=== PATIENT | female | born 1970 | race Caucasian/White ===

== ENCOUNTER 2017-02-20 03:44 | Emergency (ER) | payer BC ==
--- NOTE | 2017-02-20 03:59 | DR.GENAD ---
HPI - PCP Primary Care Physician: terrell - HPI Comment HPI Comment: HISTORY BELOW. - Complaint/Symptoms Chief Complaint Doctors Comments: WOKE UP 01:00 AM TODAY WITH SEVERE EPIGASTRIC PAIN RADIATING TO LOWER ABDOMEN. PAIN ASSOCIATED WITH NAUSEA, VOMITING AND WEAKNESS. NO FEVER. NO MELENA OR HEMATEMESIS. PATIENT HAD SIMILAR EPISODE NIGHT BEFORE LAST BUT SUBSIDED SPONTANOUSLY. Chief Complaint:: upper abdominal pain through to back and nausea since 1am. patient been vomiting Self Treatment fo Chief Complaint: pepto - Nurses notes reviewed Nurses Notes Review: Yes - Source History Provided: Patient - Mode of Arrival Mode of Arrival: Ambulatory - Timing Onset of Chief Complaint: 02/20/17 Came on: Suddenly - Duration Duration: Constant Duration: Hours - Severity Severity: Moderate PMH - PMH Past Medical History: Yes Past Medical History: Hypertension, SVT Past Medical History Comment: thyroid Past Surgical History: Yes Past Surgical History Comment: ablasion surgery - Family History History of Family Medical Conditions: Yes Family Medical History: [place], Hypertension - Social History Does patient currently use any type of tobacco product: No Have you used tobacco products in the last 12 months: No Type of Tobacco Use: None Does any household member use tobacco: No Alcohol Use: None Do you use any recreational Drugs:: No Lives With: Spouse Lives Where: Home - infectious screening In the last 2 months have you had wt loss of >10#?: NO Have you had fever, night sweats or hemotysis?: No Have you traveled outside the country in the last 6 months?: No Isolation: Standard ROS - Review of Systems Constitutional: Weakness, Fatigue. negative: Chills, Fever Eyes: No Symptoms Reported. negative: Eye Pain, Discharge ENTM: No Symptoms Reported. negative: Ear Pain, Nose Discharge, Nose Congestion , Throat Pain Respiratoy: No Symptoms Reported. negative: Productive Cough, Non-Productive Cough, Short of Breath, Wheezing, Hemoptysis Cardiovascular: No Symptoms Reported. negative: Chest Pain Gastrointestinal/Abdominal: negative: Abdominal Pain, Nausea, Vomiting Genitourinary: No Symptoms Reported. negative: Dysuria, Frequency, Hematuria Neurological: Weakness. negative: Headache, Dizziness Musculoskeletal: Muscle Pain Integumentary: No Symptoms Reported Hematologic/Lymphatic: No Symptoms Reported Endocrine: No Symptoms Reported All Other Systems: Reviewed and Negative PE - Vital Signs Vitals: Pulse Rate 76 Respiratory Rate 20 Blood Pressure 145/69 O2 Sat by Pulse Oximetry 99 - General Limitations: No Limitations General Appearance: Alert - Head Head Exam: Normal Inspection - Eyes Eye exam: Normal Appearance - ENT ENT Exam: Normal External Ear Exam External Ear Exam: Normal External Inspection TM/Canal Exam: Bilateral Normal Nose Exam: Normal Nose Exam Mouth Exam: Normal Inspection Throat Exam: Normal Inspection - Neck Neck Exam: Trachea Midline. negative: Tenderness, Meningismus, Lymphadenopathy - Chest Chest Inspection: Symmetric Chest Wall Rise - Respiratory Respiratory Exam: Normal Lung Sounds Bilat Respiratory Exam: Bilateral Clear to Auscultation - Cardiovascular Cardiovascular Exam: Regular Rate, Normal Rhythm, Normal Heart Sounds - Abdominal Exam Abdominal Exam: Normal Bowel Sounds, Soft, Tenderness Abdominal Tenderness: RUQ, LUQ, Diffuse, Moderate - Extremities Extremities Exam: Normal Inspection - Back Back Exam: Normal Inspection - Neurologic Neurological Exam: Alert, Oriented X3 - Psychiatric Psychiatric Exam: Anxious - Skin Skin Exam: Normal Color MDM - Additional Information Additional Information Obtained From: Family - Differential Diagnosis Differential Diagnosis: ABDOMINAL PAIN, PUD, PANCREATITIS, BOWEL OBSTRUCTION, KIDNEY STONE. Course - Treatment Treatment: SEE ORDERS. IV ZOFRAN AND DEMOROL, IV TORADOL AND IV PHENERGAN IN ED. - Consultation Consultation Comments: DISCUSS PATIENT WITH DR. LANDAVERDE. HE WILL ADMIT PATIENT. DR PURVIS TO BE CONSULTED. - Education/Counseling Education/Counseling: Patient, Family, Education Educated On: Treatment, Diagnosis ROR - Labs Reviewed Laboratory Results Reviewed?: Yes Result Diagrams: 02/20/17 04:15 02/20/17 04:15 Laboratory: WBC 11.8 X10^3/uL (3.6-10.0) H 02/20/17 04:15 RBC 4.82 X10^6/uL (3.5-5.4) 02/20/17 04:15 Hgb 13.8 g/dL (12.0-16.0) 02/20/17 04:15 Hct 42.1 % (36.0-47.0) 02/20/17 04:15 MCV 87.5 fL (80.0-100.0) 02/20/17 04:15 MCH 28.6 pg (27.0-34.0) 02/20/17 04:15 MCHC 32.7 g/dL (33.0-35.0) L 02/20/17 04:15 RDW 13.1 % (11.6-16.5) 02/20/17 04:15 Plt Count 203 X10^3/uL (150.0-450.0) 02/20/17 04:15 MPV 10.5 fL (7.4-11.0) 02/20/17 04:15 Neut % 78.6 % (42.0-75.0) H 02/20/17 04:15 Lymph % 14.3 % (21.0-51.0) L 02/20/17 04:15 [place] % 5.4 % (0.0-13.0) 02/20/17 04:15 Eos % 1.1 % (0.9-2.9) 02/20/17 04:15 Baso % 0.6 % (0.2-1.0) 02/20/17 04:15 Neut # 9.3 x10^3/uL (2.2-4.8) H 02/20/17 04:15 Lymph # 1.7 X10^3/uL (1.3-2.9) 02/20/17 04:15 [place] # 0.6 x10^3/uL (0.3-0.8) 02/20/17 04:15 Eos # 0.1 x10^3/uL (0.0-0.2) 02/20/17 04:15 Baso # 0.1 X10^3/uL (0.0-0.1) 02/20/17 04:15 Absolute Nucleated RBC 0.1 /100WBC 02/20/17 04:15 Sodium 143 mmol/L (136-145) 02/20/17 04:15 Corrected Sodium 144 mmol/L (136-145) 02/20/17 04:15 Potassium 3.3 mmol/L (3.5-5.1) L 02/20/17 04:15 Chloride 105 mmol/L (98-107) 02/20/17 04:15 Carbon Dioxide 28.8 mmol/L (21-32) 02/20/17 04:15 BUN 12 mg/dL (7-18) 02/20/17 04:15 Creatinine 1.01 mg/dL (0.55-1.02) 02/20/17 04:15 Est GFR (MDRD) Af Amer > 60 (>60) 02/20/17 04:15 Est GFR (MDRD) Non-Af > 60 (>60) 02/20/17 04:15 Glucose 123 mg/dL (65-99) H 02/20/17 04:15 Calcium 8.6 mg/dL (8.5-10.1) 02/20/17 04:15 Corrected Calcium 9.2 mg/dL (8.5-10.1) 02/20/17 04:15 Total Bilirubin 0.70 mg/dL (0.2-1.0) 02/20/17 04:15 AST 11 Units/L (15-37) L 02/20/17 04:15 ALT 18 Units/L (12-78) 02/20/17 04:15 Alkaline Phosphatase 76 Units/L (46-116) 02/20/17 04:15 Total Protein 6.7 g/dL (6.4-8.2) 02/20/17 04:15 Albumin 3.2 g/dL (3.4-5.0) L 02/20/17 04:15 Globulin 3.5 g/dL (2.5-4.5) 02/20/17 04:15 Albumin/Globulin Ratio 0.9 Ratio (1.1-2.1) L 02/20/17 04:15 Amylase 36 Units/L (25-115) 02/20/17 04:15 Lipase 113 Units/L (73-393) 02/20/17 04:15 Specimen Type Clean catch urine 02/20/17 06:14 Urine Color Yellow (YELLOW) 02/20/17 06:14 Urine Appearance Clear (CLEAR) 02/20/17 06:14 Urine pH 7.0 (5.0 - 8.0) 02/20/17 06:14 Ur Specific [place] 1.010 (1.000-1.030) 02/20/17 06:14 Urine Protein Negative (NEGATIVE) 02/20/17 06:14 Urine Glucose (UA) Negative (NEGATIVE) 02/20/17 06:14 Urine Ketones 1+ (NEGATIVE) 02/20/17 06:14 Urine Occult Blood Negative (NEGATIVE) 02/20/17 06:14 Urine Nitrite Negative (NEGATIVE) 02/20/17 06:14 Urine Bilirubin Negative (NEGATIVE) 02/20/17 06:14 Urine Urobilinogen Normal (NORMAL) 02/20/17 06:14 Ur Leukocyte Esterase Negative (NEGATIVE) 02/20/17 06:14 Urine RBC None seen /HPF (NEGATIVE) 02/20/17 06:14 Urine WBC None seen /HPF (NEGATIVE) 02/20/17 06:14 Ur Squamous Epith Cells Rare /HPF (NEGATIVE) 02/20/17 06:14 Urine Bacteria Trace /HPF (NEGATIVE) 02/20/17 06:14 Ur Culture Indicated? No/not indicated 02/20/17 06:14 H. pylori IgG Antibody Negative (NEGATIVE) 02/20/17 04:15 - XRAY XRAY Interpreted by: Radiologist XRAY Findings: REPORT DISCUSS WITH PATIENT. - Diagnosis Discharge Problem: Abdominal pain Qualifiers: Abdominal location: upper abdomen, unspecified Qualified Code(s): R10.10 - Upper abdominal pain, unspecified Cholelithiasis Qualifiers: Cholelithiasis location: gallbladder Cholecystitis presence: without cholecystitis Biliary obstruction: without biliary obstruction Qualified Code(s) : K80.20 - Calculus of gallbladder without cholecystitis without obstruction N&V (nausea and vomiting) Qualifiers: Vomiting type: bilious vomiting Qualified Code(s): R11.14 - Bilious vomiting - Discharge Plan Condition: Stable - Follow ups/Referrals Follow ups/Referrals: All Landaverde [Primary Care Provider] - 3 days - Instructions
[2017-02-20] MEDS ORDERED: ZOFRAN INJ 4 MG VIAL IVP ONE (04:08)
[2017-02-20] MEDS ORDERED: PEPCID 20 MG IV PREMIX* 20 MG/50 ML BAG IV ONE (04:08)
[2017-02-20] MEDS ORDERED: NS 1000 ML 1,000 ML IV ONE (04:08)
[2017-02-20] MEDS ORDERED: DEMEROL INJ IM ONE (04:11)
[2017-02-20] MEDS ORDERED: DEMEROL INJ ONE (04:15)
[2017-02-20 04:33] LABS: BASOPHILS # (AUTO) 0.1 X10^3/uL (0.0-0.1); BASOPHILS % (AUTO) 0.6 % (0.2-1.0); EOSINOPHILS # (AUTO) 0.1 x10^3/uL (0.0-0.2); EOSINOPHILS % (AUTO) 1.1 % (0.9-2.9); HEMATOCRIT 42.1 % (36.0-47.0); HEMOGLOBIN 13.8 g/dL (12.0-16.0); LYMPHOCYTES # (AUTO) 1.7 X10^3/uL (1.3-2.9); LYMPHOCYTES % (AUTO) 14.3 % (21.0-51.0); MEAN CORPUSCULAR HEMOGLOBIN 28.6 pg (27.0-34.0); MEAN CORPUSCULAR HGB CONC 32.7 g/dL (33.0-35.0); MEAN CORPUSCULAR VOLUME 87.5 fL (80.0-100.0); MEAN PLATELET VOLUME 10.5 fL (7.4-11.0); MONOCYTES # (AUTO) 0.6 x10^3/uL (0.3-0.8); MONOCYTES % (AUTO) 5.4 % (0.0-13.0); NEUTROPHILS # (AUTO) 9.3 x10^3/uL (2.2-4.8); NEUTROPHILS % (AUTO) 78.6 % (42.0-75.0); PLATELET COUNT 203 X10^3/uL (150.0-450.0); RED BLOOD COUNT 4.82 X10^6/uL (3.5-5.4); RED CELL DISTRIBUTION WIDTH 13.1 % (11.6-16.5); WHITE BLOOD COUNT 11.8 X10^3/uL (3.6-10.0)
[2017-02-20 04:35] LABS: ALANINE AMINOTRANSFERASE 18 Units/L (12-78); ALBUMIN 3.2 g/dL (3.4-5.0); ALKALINE PHOSPHATASE 76 Units/L (46-116); AMYLASE 36 Units/L (25-115); ASPARTATE AMINO TRANSFERASE 11 Units/L (15-37); BLOOD UREA NITROGEN 12 mg/dL (7-18); CALCIUM 8.6 mg/dL (8.5-10.1); CARBON DIOXIDE 28.8 mmol/L (21-32); CHLORIDE 105 mmol/L (98-107); COR CA(FOR HYPOALB) 9.2 mg/dL (8.5-10.1); COR NA(FOR HYPERGLY) 144 mmol/L (136-145); CREATININE 1.01 mg/dL (0.55-1.02); GLUCOSE 123 mg/dL (65-99); LIPASE 113 Units/L (73-393); SODIUM 143 mmol/L (136-145); TOTAL PROTEIN 6.7 g/dL (6.4-8.2); eGFR BLACK RACES > 60 (>60); eGFR NON BLACK RACES > 60 (>60)
[2017-02-20] MEDS ORDERED: NS + KCL 20 MEQ/L 1,000 ML IV ONE ×2 (05:47→05:54)
--- NOTE | 2017-02-20 05:54 | CT ---
HISTORY: Abdominal pain. Upper abdominal pain and nausea. Study: CT abdomen and pelvis without IV or oral contrast Comparison: No priors Technique: Multiple axial images of the abdomen and pelvis were obtained from the lung bases to the pubic symph ysis without the administration of IV or oral contrast. Coronal and sagittal images are also review ed. Dose reduction techniques utilized automatic exposure control. Findings: The visualized portions of the lung bases are unremarkable. The liver, spleen, pancreas, kidneys, a nd adrenal glands are unremarkable in their CT appearance. The gallbladder is unremarkable in its CT appearance. No significant mesenteric lymphadenopathy or stranding can be observed. No free fluid or free air is seen within the abdomen. No bowel wall thickening or bowel dilatation is present. T he appendix is retrocecal and normal in appearance. The colon is unremarkable. Specifically, there is no diverticulosis noted within the sigmoid colon. The uterus appears slightly prominent and lies to the right of the midline. There is a 3.25 centimeter simple cyst of the left ovary. No solid mass or cul-de-sac fluid is seen. The urinary bladder is grossly unremarkable. The bony structures are grossly intact. IMPRESSION: 3.25 centimeter simple cyst of the left ovary. Remainder the examination of the abdomen and pelvis i s unremarkable. Reported By:
[2017-02-20] MEDS ORDERED: NS + KCL 20 MEQ/L 1,000 ML IV SCH (06:00)
[2017-02-20] MEDS ORDERED: TORADOL 30 MG VIAL IVP ONE (06:00)
[2017-02-20] MEDS ORDERED: TORADOL 30 MG VIAL ONE (06:02)
[2017-02-20] MEDS ORDERED: PHENERGAN INJ 25 MG IV ONE (06:09)
[2017-02-20] MEDS ORDERED: PHENERGAN INJ 25 MG ONE (06:10)
[2017-02-20 06:21] LABS: BILIRUBIN,URINE NEGATIVE (NEGATIVE); BLOOD/HEMOGLOBIN,URINE NEGATIVE (NEGATIVE); GLUCOSE, URINE NEGATIVE (NEGATIVE); KETONES,URINE 1+ (NEGATIVE); LEUKOCYTE ESTERASE ,URINE NEGATIVE (NEGATIVE); NITRITES,URINE NEGATIVE (NEGATIVE); PROTEIN,URINE NEGATIVE (NEGATIVE); UROBILINOGEN,URINE NORMAL (NORMAL)
[2017-02-20 06:23] LABS: APPEARANCE,URINE CLEAR (CLEAR); COLOR,URINE YELLOW (YELLOW)
[2017-02-20 06:25] LABS: RBC,URINE NONE SEEN /HPF (NEGATIVE); SQUAMOUS EPITHELIAL CELL,UR RARE /HPF (NEGATIVE)
[2017-02-20 06:26] LABS: BACTERIA,URINE TRACE /HPF (NEGATIVE)
--- NOTE | 2017-02-20 07:03 | US ---
HISTORY: Nausea, abdominal pain Study: Right upper quadrant ultrasound Comparison: None Technique: Multiple grayscale sonographic images were obtained. Findings: The liver is normal in size and configuration without evidence for cysts, mass, or biliary ductal di latation. There is a large gallstone within the gallbladder. Gallbladder wall thickness was normal. The common duct measured 4 millimeters. The pancreas was not well visualized. The right kidney measu red 10.8 x 6.5 x 4.9 centimeters and demonstrated no solid masses, hydronephrosis, stones, or perine phric fluid collections. IMPRESSION: Cholelithiasis without evidence for cholecystitis Reported By:
[2017-02-20] MEDS ORDERED: ZOFRAN INJ 4 MG VIAL IVP PRN (07:52)
[2017-02-20] MEDS: DEMEROL INJ IVP PRN ×3 (11:14→20:24)
[2017-02-20 11:30] VITALS: BMI 21.7
[2017-02-20] MEDS ORDERED: D5 LR 1000 ML 1,000 ML IV ONE (14:11)
[2017-02-20] MEDS ORDERED: XYLOCAINE 2 % (PLAIN) ONE (14:14)
[2017-02-20] MEDS ORDERED: DIPRIVAN VIAL 20 ML ONE (14:14)
[2017-02-20] MEDS ORDERED: DIPRIVAN VIAL 0 ML ONE (14:19)
--- NOTE | 2017-02-20 14:20 | DR.H&P ---
H&P - History & Physical for Day of: H&P Date: 02/20/17 - Chief Complaint Chief Complaint: ABDOMINAL PAIN - Allergies Allergies/Adverse Reactions: Allergies Allergy/AdvReac Type Severity Reaction Status Date / Time No Known Drug Allergy Allergy Verified 02/20/17 04:12 - History of Present Illness History of Present Illness: THIS IS A 47 YEAR OLD FEMALE, WHO IS A PATIENT OF OURS. SHE PRESENTS TO THE EMERGENCY ROOM WITH COMPLAINTS OF SEVERE ABDOMINAL PAIN. PATIENT REPORTS ABDOMINAL PAIN STARTED SUDDENLY AT 1:00 AM THIS MORNING. PATIENT REPORTS PAIN IS IN THE EPIGASTRIC REGION AND RADIATES TO LOWER ABDOMEN. SHE REPORTS ASSCOIATED NAUSEA, VOMITING, FATIGUE AND WEAKNESS. SHE DENIES FEVER, MELENA, AND HEMATEMESIS. PATIENT REPORTS SIMILAR EPISODE ONE NIGHT PRIOR, BUT SYMPTOMS SPONTANEOUSLY SUBSIDED. LABS, CT OBTAINED IN ER. CBC WNL EXCEPT: WBC 11.8. CMP WNL EXCEPT: POTASSIUM 3.3, GLUCOSE 123, ALBUMIN 3.2. URINALYSIS WNL. H-PYLORI NEGATIVE. EKG: SINUS RHYTHM, RATE 70. CT OF ABD/PELVIS REPORTS 3.25CM SIMPLE CYST OF THE LEFT OVARY; REMAINDER OF THE ABD/ PELVIS IS UNREMARKABLE. GALLBLADDER US REPORTS CHOLELITHIASIS WITHOUT EVIDENCE FOR CHOLECYSTITIS. PATIENT RECEIVED IV ZOFRAN, DEMEROL, TORADOL, AND PHENERGAN IN ER. WE WILL ADMIT PATIENT FOR FURTHER TREATMENT AND EVALUATION. WE WILL START IV PAIN MEDICATION, IV ANTI-EMETICS, AND CONSULT DR. PURVIS. - Past Medical History Past Medical History: Hypertension, Hypothyroidism, SVT - Past Surgical History Additional Surgical History: Cardiac Ablation 2008 - Family History Family Medical History: [place], Hypertension - Social History Does patient currently use any type of tobacco product: No Have you used tobacco products in the last 12 months: No Type of Tobacco Use: None Does any household member use tobacco: No Alcohol Use: None - Medications Home Medications: Norethin Acet & Estrad-Fe [Junel Fe 11/04 1-20 mg-Mcg] 1 tab PO DAILY 02/20/17 [ History Confirmed 02/20/17] Ramipril [Ramipril] 20 mg PO DAILY 02/20/17 [History Confirmed 02/20/17] Thyroid [[place] Thyroid] 0.5 tab PO DAILY 02/20/17 [History Confirmed 02/20/17] - Review of Systems Constitutional: Weakness, Malaise. denies: Fever Eyes: No Symptoms Reported. denies: Pain, Vision Change, Conjunctivae Inflammation, Eyelid Inflammation, Redness ENT: No Symptoms Reported. denies: Ear Pain, Ear Discharge, Nose Pain, Nose Discharge, Nose Congestion, Mouth Pain, Mouth Swelling, Throat Pain, Throat Swelling Respiratory: No Symptoms Reported. denies: Cough, Shortness of Breath, Hemoptysis, SOB with Excertion, Pleuritic Pain, Sputum, Wheezing Cardiovascular: No Symptoms Reported. denies: Chest Pain, Palpitations, Orthopnea, Paroxysmal Noc. Dyspnea, Edema, Light Headedness Gastrointestinal: Nausea, Vomiting, Abdominal Pain. denies: Diarrhea, Constipation, Melena, Hematochezia Genitourinary: No Symptoms Reported. denies: Dysuria, Frequency, Incontinence, Hematuria, Retention Musculoskeletal: No Symptoms Reported. denies: Shoulder Pain, Arm Pain, Back Pain, Hand Pain, Leg Pain, Foot Pain, Neck Pain Skin: No Symptoms Reported. denies: Rash, Lesions, Jaundice, Bruising, Wound, Ecchymosis Neurological: No Symptoms Reported. denies: Weakness, Numbness, Incoordination , Change in Speech, Confusion, Seizures - Physical Exam Vital Signs: Temperature 98.5 F Pulse Rate [Left Brachial] 76 Respiratory Rate 18 Blood Pressure [Left Arm] 119/73 O2 Sat by Pulse Oximetry 95 Oriented: Normal, Time, Person, Place Eyes: Normal. negative: Blurred Vision, Diplopia, Discharge, Pain, Redness, Photophobia Ear: Normal. negative: Swelling, Ecchymosis, Hemotypanum, Abrasion, Laceration Nose: Normal. negative: Injected, Discharge, Blood Throat: Dry. negative: Tonsillar Hypertrophy, Exudate Respiratory: Clear Throughout Cardiovascular: Normal. negative: Murmur, Edema : Normal. negative: Dysuria, Hematuria, Frequency, Discharge, Bleeding, Auscultation: Bowel Sounds: Decreased. negative: Bruit Palpation: Normal. negative: Spleen Enlarged, Liver Enlarged, Mass Pulsatile Tenderness: Diffuse, Severe. negative: Rebound, Guarding, Rigidity Skin: Decreased [place]. negative: Diaphoresis, Wound, Bruising, Ecchymosis Musculoskeletal: Normal Psychiatric: Normal Mood Description: Calm, Appropriate Affect: Normal Speech Pattern: Clear, Appropriate - Assessment/Plan (1) Abdominal pain Qualifiers: Abdominal location: epigastric Qualified Code(s): R10.13 - Epigastric pain Status: Acute Plan: ADMIT PATIENT, START IV FLUIDS, IV PAIN MEDICATION, IV ANTI-EMETICS, CONSULT DR. PURVIS, MONITOR. (2) Cholelithiasis Qualifiers: Cholelithiasis location: gallbladder Cholecystitis presence: without cholecystitis Cholangitis presence: C Cholecystitis acuity: C Cholangitis acuity: C Biliary obstruction: without biliary obstruction Qualified Code(s) : K80.20 - Calculus of gallbladder without cholecystitis without obstruction Status: Acute Plan: ABOVE. (3) N&V (nausea and vomiting) Qualifiers: Vomiting type: bilious vomiting Vomiting Intractability: V Qualified Code (s): R11.14 - Bilious vomiting Status: Acute Plan: ABOVE. (4) Hx of supraventricular tachycardia Status: Chronic (5) Hypertension Qualifiers: Hypertension type: essential hypertension Qualified Code(s): I10 - Essential (primary) hypertension Status: Chronic (6) Hypothyroid Qualifiers: Hypothyroidism type: H Status: Chronic
[2017-02-20] MEDS ORDERED: NS 1/2 1000 ML IV 1,000 ML IV ONE (15:58)
[2017-02-20] MEDS: PROTONIX INJ 40 MG VIAL IVP SCH (16:13)
[2017-02-20] MEDS: NS 1/2 1000 ML IV 1,000 ML IV SCH (16:13)
[2017-02-20] MEDS: PHENERGAN INJ 25 MG IV PRN (20:24)
[2017-02-20] MEDS: PEPCID 20 MG IV PREMIX* 20 MG/50 ML BAG IV SCH (20:30)
[2017-02-21] MEDS: DEMEROL INJ IVP PRN ×2 (00:42→21:41)
[2017-02-21] MEDS: PHENERGAN INJ 25 MG IV PRN ×2 (00:43→21:41)
[2017-02-21 05:23] LABS: BASOPHILS # (AUTO) 0.1 X10^3/uL (0.0-0.1); BASOPHILS % (AUTO) 1.1 % (0.2-1.0); EOSINOPHILS # (AUTO) 0.1 x10^3/uL (0.0-0.2); EOSINOPHILS % (AUTO) 0.8 % (0.9-2.9); HEMATOCRIT 40.2 % (36.0-47.0); HEMOGLOBIN 13.4 g/dL (12.0-16.0); LYMPHOCYTES # (AUTO) 1.9 X10^3/uL (1.3-2.9); LYMPHOCYTES % (AUTO) 16.9 % (21.0-51.0); MEAN CORPUSCULAR HEMOGLOBIN 28.7 pg (27.0-34.0); MEAN CORPUSCULAR HGB CONC 33.4 g/dL (33.0-35.0); MEAN CORPUSCULAR VOLUME 85.8 fL (80.0-100.0); MEAN PLATELET VOLUME 11.3 fL (7.4-11.0); MONOCYTES # (AUTO) 0.9 x10^3/uL (0.3-0.8); MONOCYTES % (AUTO) 8.3 % (0.0-13.0); NEUTROPHILS # (AUTO) 8.3 x10^3/uL (2.2-4.8); NEUTROPHILS % (AUTO) 72.9 % (42.0-75.0); PLATELET COUNT 184 X10^3/uL (150.0-450.0); RED BLOOD COUNT 4.68 X10^6/uL (3.5-5.4); RED CELL DISTRIBUTION WIDTH 13.1 % (11.6-16.5); WHITE BLOOD COUNT 11.4 X10^3/uL (3.6-10.0)
[2017-02-21 05:45] LABS: ALANINE AMINOTRANSFERASE 13 Units/L (12-78); ALBUMIN 2.7 g/dL (3.4-5.0); ALKALINE PHOSPHATASE 71 Units/L (46-116); ASPARTATE AMINO TRANSFERASE 18 Units/L (15-37); BLOOD UREA NITROGEN 7 mg/dL (7-18); CALCIUM 8.2 mg/dL (8.5-10.1); CARBON DIOXIDE 24.4 mmol/L (21-32); CHLORIDE 106 mmol/L (98-107); COR CA(FOR HYPOALB) 9.2 mg/dL (8.5-10.1); CREATININE 0.68 mg/dL (0.55-1.02); GLUCOSE 88 mg/dL (65-99); SODIUM 140 mmol/L (136-145); TOTAL PROTEIN 6.1 g/dL (6.4-8.2); eGFR BLACK RACES > 60 (>60); eGFR NON BLACK RACES > 60 (>60)
[2017-02-21] MEDS: NS 1/2 1000 ML IV 1,000 ML IV SCH ×2 (07:13→16:36)
[2017-02-21] MEDS: PROTONIX INJ 40 MG VIAL IVP SCH (11:01)
[2017-02-21] MEDS: PEPCID 20 MG IV PREMIX* 20 MG/50 ML BAG IV SCH ×2 (11:01→21:42)
--- NOTE | 2017-02-21 13:51 | PCM.PROG ---
Progress Note - Progress Note for Day of Date: 02/21/17 - Subjective Subjective: PATIENT IS NPO THIS MORNING FOR FLAKITA. SHE CONTINUES TO REPORT SEVERE ABDOMINAL PAIN. UPON PALPATION, RIGHT ABDOMINAL PAIN IS NOTED. SHE REPORTS NAUSEA AFTER EATING ALONG WITH ABDOMINAL PAIN. PATIENT HAD AN EGD PER DR. PURVIS YESTERDAY THAT REPORTED GASTRITIS AND DUODENITIS. WE DISCUSS FLAKITA WITH POSSIBLE SURGERY FOR GALLBLADDER REMOVAL, IF SCAN REPORTS DECREASED EF. PATIENT AND VOICE UNDERSTANDING. CBC WNL EXCEPT: WBC 11.4. CMP WNL EXCEPT: POTASSIUM 3.3, CALCIUM 8.2, TOT BILIRUBIN 1.60, TOT PROTEIN 6.1, ALBUMIN 2.7. WE WILL CONTINUE IV PAIN MEDICATION, ANTI-EMETICS, AND MONITOR. - Past Medical Family Social History Past Med/Fam/Surg Hx: No changes since H&P Allergies: Allergies No Known Drug Allergy Allergy (Verified 02/20/17 04:12) - Review of Systems ROS: No change since H&P - Vital Signs and I&O's Vital Signs: Temperature 98.7 F Pulse Rate [Left Brachial] 76 Respiratory Rate 18 Blood Pressure [Left Arm] 125/63 O2 Sat by Pulse Oximetry 95 Intake and Output: Intake & Output 02/19/17 02/20/17 02/21/17 02/22/17 11:59 11:59 11:59 11:59 Intake Total 620 Balance 620 - Physical Exam Oriented: Normal, Time, Person, Place Eyes: Normal. negative: Blurred Vision, Diplopia, Discharge, Pain, Redness, Photophobia Ear: Normal. negative: Swelling, Ecchymosis, Hemotypanum, Abrasion, Laceration Nose: Normal. negative: Injected, Discharge, Blood Throat: Dry. negative: Tonsillar Hypertrophy, Exudate Respiratory: Normal Cardiovascular: Normal. negative: Murmur, Edema : Normal. negative: Dysuria, Hematuria, Frequency, Discharge, Bleeding, Auscultation: Bowel Sounds: Decreased. negative: Bruit Palpation: Normal Tenderness: Diffuse, RUQ, RLQ, Moderate. negative: Rebound, Guarding, Rigidity Skin: Normal. negative: Diaphoresis, Wound, Bruising, Ecchymosis Musculoskeletal: Normal Psychiatric: Normal Mood Description: Calm, Appropriate Affect: Normal Speech Pattern: Clear, Appropriate - Laboratory and Diagnostics Result Diagrams: 02/21/17 04:00 02/21/17 04:00 Labs: Laboratory WBC 11.4 X10^3/uL (3.6-10.0) H 02/21/17 04:00 RBC 4.68 X10^6/uL (3.5-5.4) 02/21/17 04:00 Hgb 13.4 g/dL (12.0-16.0) 02/21/17 04:00 Hct 40.2 % (36.0-47.0) 02/21/17 04:00 MCV 85.8 fL (80.0-100.0) 02/21/17 04:00 MCH 28.7 pg (27.0-34.0) 02/21/17 04:00 MCHC 33.4 g/dL (33.0-35.0) 02/21/17 04:00 RDW 13.1 % (11.6-16.5) 02/21/17 04:00 Plt Count 184 X10^3/uL (150.0-450.0) 02/21/17 04:00 MPV 11.3 fL (7.4-11.0) H 02/21/17 04:00 Neut % 72.9 % (42.0-75.0) 02/21/17 04:00 Lymph % 16.9 % (21.0-51.0) L 02/21/17 04:00 [place] % 8.3 % (0.0-13.0) 02/21/17 04:00 Eos % 0.8 % (0.9-2.9) L 02/21/17 04:00 Baso % 1.1 % (0.2-1.0) H 02/21/17 04:00 Neut # 8.3 x10^3/uL (2.2-4.8) H 02/21/17 04:00 Lymph # 1.9 X10^3/uL (1.3-2.9) 02/21/17 04:00 [place] # 0.9 x10^3/uL (0.3-0.8) H 02/21/17 04:00 Eos # 0.1 x10^3/uL (0.0-0.2) 02/21/17 04:00 Baso # 0.1 X10^3/uL (0.0-0.1) 02/21/17 04:00 Absolute Nucleated RBC 0.0 /100WBC 02/21/17 04:00 Sodium 140 mmol/L (136-145) 02/21/17 04:00 Corrected Sodium TNP 02/21/17 04:00 Potassium 3.3 mmol/L (3.5-5.1) L 02/21/17 04:00 Chloride 106 mmol/L (98-107) 02/21/17 04:00 Carbon Dioxide 24.4 mmol/L (21-32) 02/21/17 04:00 BUN 7 mg/dL (7-18) 02/21/17 04:00 Creatinine 0.68 mg/dL (0.55-1.02) 02/21/17 04:00 Est GFR (MDRD) Af Amer > 60 (>60) 02/21/17 04:00 Est GFR (MDRD) Non-Af > 60 (>60) 02/21/17 04:00 Glucose 88 mg/dL (65-99) 02/21/17 04:00 Calcium 8.2 mg/dL (8.5-10.1) L 02/21/17 04:00 Corrected Calcium 9.2 mg/dL (8.5-10.1) 02/21/17 04:00 Total Bilirubin 1.60 mg/dL (0.2-1.0) H 02/21/17 04:00 AST 18 Units/L (15-37) 02/21/17 04:00 ALT 13 Units/L (12-78) 02/21/17 04:00 Alkaline Phosphatase 71 Units/L (46-116) 02/21/17 04:00 Total Protein 6.1 g/dL (6.4-8.2) L 02/21/17 04:00 Albumin 2.7 g/dL (3.4-5.0) L 02/21/17 04:00 Globulin 3.4 g/dL (2.5-4.5) 02/21/17 04:00 Albumin/Globulin Ratio 0.8 Ratio (1.1-2.1) L 02/21/17 04:00 Amylase 36 Units/L (25-115) 02/20/17 04:15 Lipase 113 Units/L (73-393) 02/20/17 04:15 Specimen Type Clean catch urine 02/20/17 06:14 Urine Color Yellow (YELLOW) 02/20/17 06:14 Urine Appearance Clear (CLEAR) 02/20/17 06:14 Urine pH 7.0 (5.0 - 8.0) 02/20/17 06:14 Ur Specific [place] 1.010 (1.000-1.030) 02/20/17 06:14 Urine Protein Negative (NEGATIVE) 02/20/17 06:14 Urine Glucose (UA) Negative (NEGATIVE) 02/20/17 06:14 Urine Ketones 1+ (NEGATIVE) 02/20/17 06:14 Urine Occult Blood Negative (NEGATIVE) 02/20/17 06:14 Urine Nitrite Negative (NEGATIVE) 02/20/17 06:14 Urine Bilirubin Negative (NEGATIVE) 02/20/17 06:14 Urine Urobilinogen Normal (NORMAL) 02/20/17 06:14 Ur Leukocyte Esterase Negative (NEGATIVE) 02/20/17 06:14 Urine RBC None seen /HPF (NEGATIVE) 02/20/17 06:14 Urine WBC None seen /HPF (NEGATIVE) 02/20/17 06:14 Ur Squamous Epith Cells Rare /HPF (NEGATIVE) 02/20/17 06:14 Urine Bacteria Trace /HPF (NEGATIVE) 02/20/17 06:14 Ur Culture Indicated? No/not indicated 02/20/17 06:14 H. pylori IgG Antibody Negative (NEGATIVE) 02/20/17 04:15 - Plan (1) Abdominal pain Status: Acute Qualifiers: Abdominal location: epigastric Qualified Code(s): R10.13 - Epigastric pain Plan: HIDASCAN TODAY, CONTINUE IV FLUIDS, IV PAIN MEDICATION, IV ANTI-EMETICS, DR. PURVIS CONSULTING, MONITOR. (2) Cholelithiasis Status: Acute Qualifiers: Cholelithiasis location: gallbladder Cholecystitis presence: without cholecystitis Cholangitis presence: C Cholecystitis acuity: C Cholangitis acuity: C Biliary obstruction: without biliary obstruction Qualified Code(s) : K80.20 - Calculus of gallbladder without cholecystitis without obstruction Plan: ABOVE. (3) Gastritis and duodenitis Status: Acute Plan: CONTINUE PEPCID, PROTONIX, ANTI-EMETICS, MONITOR. (4) N&V (nausea and vomiting) Status: Acute Qualifiers: Vomiting type: bilious vomiting Vomiting Intractability: V Qualified Code (s): R11.14 - Bilious vomiting Plan: ABOVE. (5) Hx of supraventricular tachycardia Status: Chronic (6) Hypertension Status: Chronic Qualifiers: Hypertension type: essential hypertension Qualified Code(s): I10 - Essential (primary) hypertension (7) Hypothyroid Status: Chronic Qualifiers: Hypothyroidism type: H
[2017-02-21] MEDS ORDERED: MORPHINE SULFATE INJ 2 MG IVP NR (14:00)
--- NOTE | 2017-02-21 14:12 | NM ---
HISTORY: Abdominal pain. Cholelithiasis. Study: Nuclear medicine HIDA scan with ejection fraction Comparison: Gallbladder ultrasound from February 20, 2017. Technique: Multiple scintigraphic images of the abdomen were obtained the intravenous administration of 5.6 mCi of technetium labeled Choletec. Kinevac was not administered. An estimated gallbladder ejection fraction was not obtained. Findings: Homogeneous uptake of radiotracer is seen throughout the liver. The intrabiliary ductal system is o bserved normally. The common hepatic and common bile duct are unremarkable with normal biliary-compa l transit. The gallbladder does not fill with radionuclide. IMPRESSION: 1. Abnormal hepatobiliary imaging scan, with nonfilling of the gallbladder. Findings are concerning for partial or complete obstruction of the common hepatic duct. This may be seen in the setting of stone within the common hepatic duct, stricture or occlusion by neoplasm. An MRCP or ERCP may be hel pful for further evaluation. Reported By:
[2017-02-21] MEDS ORDERED: NS 1/2 1000 ML IV 1,000 ML IV ONE (16:28)
[2017-02-22 05:30] LABS: ALANINE AMINOTRANSFERASE 16 Units/L (12-78); ALBUMIN 2.5 g/dL (3.4-5.0); ALKALINE PHOSPHATASE 66 Units/L (46-116); ASPARTATE AMINO TRANSFERASE 14 Units/L (15-37); BLOOD UREA NITROGEN 7 mg/dL (7-18); CALCIUM 8.1 mg/dL (8.5-10.1); CARBON DIOXIDE 25.9 mmol/L (21-32); CHLORIDE 108 mmol/L (98-107); COR CA(FOR HYPOALB) 9.3 mg/dL (8.5-10.1); CREATININE 0.85 mg/dL (0.55-1.02); GLUCOSE 91 mg/dL (65-99); SODIUM 142 mmol/L (136-145); TOTAL PROTEIN 5.8 g/dL (6.4-8.2); eGFR BLACK RACES > 60 (>60); eGFR NON BLACK RACES > 60 (>60)
[2017-02-22 05:38] LABS: BASOPHILS # (AUTO) 0.1 X10^3/uL (0.0-0.1); BASOPHILS % (AUTO) 0.7 % (0.2-1.0); EOSINOPHILS # (AUTO) 0.3 x10^3/uL (0.0-0.2); HEMATOCRIT 38.5 % (36.0-47.0); HEMOGLOBIN 12.9 g/dL (12.0-16.0); LYMPHOCYTES # (AUTO) 2.4 X10^3/uL (1.3-2.9); LYMPHOCYTES % (AUTO) 25.4 % (21.0-51.0); MEAN CORPUSCULAR HGB CONC 33.6 g/dL (33.0-35.0); MEAN CORPUSCULAR VOLUME 86.4 fL (80.0-100.0); MEAN PLATELET VOLUME 11.4 fL (7.4-11.0); MONOCYTES # (AUTO) 0.8 x10^3/uL (0.3-0.8); MONOCYTES % (AUTO) 8.9 % (0.0-13.0); NEUTROPHILS # (AUTO) 5.8 x10^3/uL (2.2-4.8); PLATELET COUNT 198 X10^3/uL (150.0-450.0); RED BLOOD COUNT 4.46 X10^6/uL (3.5-5.4); RED CELL DISTRIBUTION WIDTH 12.9 % (11.6-16.5); WHITE BLOOD COUNT 9.3 X10^3/uL (3.6-10.0)
[2017-02-22] MEDS: NS 1/2 1000 ML IV 1,000 ML IV SCH (06:25)
[2017-02-22] MEDS ORDERED: K-DUR TAB 20 MEQ PO PRN (07:46)
[2017-02-22] MEDS ORDERED: POTASSIUM CHLORIDE LIQ 20 MEQ UDC PO PRN (07:46)
[2017-02-22] MEDS ORDERED: K-RIDER 10 MEQ/NS 100 ML 10 MEQ/100 ML BAG IV PRN (07:46)
[2017-02-22] MEDS ORDERED: K-LYTE EFFERVESCENT PO PRN (07:46)
[2017-02-22 09:13] LABS: AMYLASE 57 Units/L (25-115); LIPASE 205 Units/L (73-393)
[2017-02-22] MEDS ORDERED: LR 1000 ML IV 1,000 ML IV ONE ×2 (09:30→11:22)
[2017-02-22] MEDS ORDERED: NS 50 ML IV + SPIKE MINIBAG* 50 ML IV ONE (09:30)
[2017-02-22] MEDS ORDERED: ANCEF VIAL 1 GM ONE (09:31)
[2017-02-22] MEDS ORDERED: MARCAINE 0.25% WITH EPI IJ ONE (09:39)
[2017-02-22] MEDS ORDERED: XYLOCAINE 1 % (PLAIN) ONE (09:39)
[2017-02-22] MEDS ORDERED: FENTANYL INJ 250 mcg ONE (09:49)
[2017-02-22] MEDS ORDERED: NS IRRIGATION 3000 ML 3,000 ML IR ONE (10:16)
[2017-02-22] MEDS ORDERED: NS IRRIGATION 1000 ML 1,000 ML IR ONE (10:16)
--- NOTE | 2017-02-22 10:57 | PCM.PROG ---
Progress Note - Progress Note for Day of Date: 02/22/17 - Subjective Subjective: FLAKITA REPORTS THAT THE GALLBLADDER IS NOT FILLING WITH RADIONUCLIDE; COMMON HEPATIC AND COMMON BILE DUCT ARE UNREMARKABLE WITH NORMAL BILIARY-BOWEL TRANSIT. WE DISCUSS REPORT WITH DR. PURVIS AND PLANS ARE MADE FOR SURGERY. WE DISCUSS THIS WITH PATIENT AND SHE AND HER ARE IN AGREEMENT WITH PLANS. SHE CONTINUES WITH ABDOMINAL PAIN. UPON PALPATION, RIGHT ABDOMINAL TENDERNESS IS NOTED. CBC WNL. CMP WNL EXCEPT: POTASSIUM 3.4, CALCIUM 8.1, TOT BILIRUBIN 1.30, TOT PROTEIN 5.8, ALBUMIN 2.5. WE WILL CONTINUE IV PAIN MEDICATION, ANTI-EMETICS, AND MONITOR. PATIENT IS MEDICALLY CLEAR FOR SURGERY. - Past Medical Family Social History Past Med/Fam/Surg Hx: No changes since H&P Allergies: Allergies No Known Drug Allergy Allergy (Verified 02/20/17 04:12) - Review of Systems ROS: No change since H&P - Vital Signs and I&O's Vital Signs: Temperature 98.4 F Pulse Rate [Left Brachial] 72 Respiratory Rate 18 Blood Pressure [Left Arm] 104/62 O2 Sat by Pulse Oximetry 97 Intake and Output: Intake & Output 02/19/17 02/20/17 02/21/17 02/22/17 11:59 11:59 11:59 11:59 Intake Total 620 890 Balance 620 890 - Physical Exam Oriented: Normal, Time, Person, Place Eyes: Normal. negative: Blurred Vision, Diplopia, Discharge, Pain, Redness, Photophobia Ear: Normal. negative: Swelling, Ecchymosis, Hemotypanum, Abrasion, Laceration Nose: Normal. negative: Injected, Discharge, Blood Throat: Dry. negative: Tonsillar Hypertrophy, Exudate Respiratory: Normal Cardiovascular: Normal. negative: Murmur, Edema : Normal. negative: Dysuria, Hematuria, Frequency, Discharge, Bleeding, Auscultation: Bowel Sounds: Decreased. negative: Bruit Palpation: Normal. negative: Spleen Enlarged, Liver Enlarged, Mass Pulsatile Tenderness: Diffuse, RUQ, RLQ, Epigastric, Moderate. negative: Rebound, Guarding, Rigidity Skin: Normal. negative: Diaphoresis, Wound, Bruising, Ecchymosis Musculoskeletal: Normal Psychiatric: Normal Mood Description: Calm, Appropriate Affect: Normal Speech Pattern: Clear, Appropriate - Laboratory and Diagnostics Result Diagrams: 02/22/17 04:15 02/22/17 04:15 Labs: Laboratory WBC 9.3 X10^3/uL (3.6-10.0) 02/22/17 04:15 RBC 4.46 X10^6/uL (3.5-5.4) 02/22/17 04:15 Hgb 12.9 g/dL (12.0-16.0) 02/22/17 04:15 Hct 38.5 % (36.0-47.0) 02/22/17 04:15 MCV 86.4 fL (80.0-100.0) 02/22/17 04:15 MCH 29.0 pg (27.0-34.0) 02/22/17 04:15 MCHC 33.6 g/dL (33.0-35.0) 02/22/17 04:15 RDW 12.9 % (11.6-16.5) 02/22/17 04:15 Plt Count 198 X10^3/uL (150.0-450.0) 02/22/17 04:15 MPV 11.4 fL (7.4-11.0) H 02/22/17 04:15 Neut % 62.0 % (42.0-75.0) 02/22/17 04:15 Lymph % 25.4 % (21.0-51.0) 02/22/17 04:15 Kane % 8.9 % (0.0-13.0) 02/22/17 04:15 Eos % 3.0 % (0.9-2.9) H 02/22/17 04:15 Baso % 0.7 % (0.2-1.0) 02/22/17 04:15 Neut # 5.8 x10^3/uL (2.2-4.8) H 02/22/17 04:15 Lymph # 2.4 X10^3/uL (1.3-2.9) 02/22/17 04:15 Kane # 0.8 x10^3/uL (0.3-0.8) 02/22/17 04:15 Eos # 0.3 x10^3/uL (0.0-0.2) H 02/22/17 04:15 Baso # 0.1 X10^3/uL (0.0-0.1) 02/22/17 04:15 Absolute Nucleated RBC 0.0 /100WBC 02/22/17 04:15 Sodium 142 mmol/L (136-145) 02/22/17 04:15 Corrected Sodium TNP 02/22/17 04:15 Potassium 3.4 mmol/L (3.5-5.1) L 02/22/17 04:15 Chloride 108 mmol/L (98-107) H 02/22/17 04:15 Carbon Dioxide 25.9 mmol/L (21-32) 02/22/17 04:15 BUN 7 mg/dL (7-18) 02/22/17 04:15 Creatinine 0.85 mg/dL (0.55-1.02) 02/22/17 04:15 Est GFR (MDRD) Af Amer > 60 (>60) 02/22/17 04:15 Est GFR (MDRD) Non-Af > 60 (>60) 02/22/17 04:15 Glucose 91 mg/dL (65-99) 02/22/17 04:15 Calcium 8.1 mg/dL (8.5-10.1) L 02/22/17 04:15 Corrected Calcium 9.3 mg/dL (8.5-10.1) 02/22/17 04:15 Total Bilirubin 1.30 mg/dL (0.2-1.0) H 02/22/17 04:15 AST 14 Units/L (15-37) L 02/22/17 04:15 ALT 16 Units/L (12-78) 02/22/17 04:15 Alkaline Phosphatase 66 Units/L (46-116) 02/22/17 04:15 Total Protein 5.8 g/dL (6.4-8.2) L 02/22/17 04:15 Albumin 2.5 g/dL (3.4-5.0) L 02/22/17 04:15 Globulin 3.3 g/dL (2.5-4.5) 02/22/17 04:15 Albumin/Globulin Ratio 0.8 Ratio (1.1-2.1) L 02/22/17 04:15 Amylase 57 Units/L (25-115) 02/22/17 04:15 Lipase 205 Units/L (73-393) 02/22/17 04:15 Specimen Type Clean catch urine 02/20/17 06:14 Urine Color Yellow (YELLOW) 02/20/17 06:14 Urine Appearance Clear (CLEAR) 02/20/17 06:14 Urine pH 7.0 (5.0 - 8.0) 02/20/17 06:14 Ur Specific Doss 1.010 (1.000-1.030) 02/20/17 06:14 Urine Protein Negative (NEGATIVE) 02/20/17 06:14 Urine Glucose (UA) Negative (NEGATIVE) 02/20/17 06:14 Urine Ketones 1+ (NEGATIVE) 02/20/17 06:14 Urine Occult Blood Negative (NEGATIVE) 02/20/17 06:14 Urine Nitrite Negative (NEGATIVE) 02/20/17 06:14 Urine Bilirubin Negative (NEGATIVE) 02/20/17 06:14 Urine Urobilinogen Normal (NORMAL) 02/20/17 06:14 Ur Leukocyte Esterase Negative (NEGATIVE) 02/20/17 06:14 Urine RBC None seen /HPF (NEGATIVE) 02/20/17 06:14 Urine WBC None seen /HPF (NEGATIVE) 02/20/17 06:14 Ur Squamous Epith Cells Rare /HPF (NEGATIVE) 02/20/17 06:14 Urine Bacteria Trace /HPF (NEGATIVE) 02/20/17 06:14 Ur Culture Indicated? No/not indicated 02/20/17 06:14 H. pylori IgG Antibody Negative (NEGATIVE) 02/20/17 04:15 - Plan (1) Abdominal pain Status: Acute Qualifiers: Abdominal location: epigastric Qualified Code(s): R10.13 - Epigastric pain Plan: SURGERY TODAY, CONTINUE IV FLUIDS, IV PAIN MEDICATION, IV ANTI-EMETICS, DR. PURVIS CONSULTING, MONITOR. PATIENT IS MEDICALLY CLEAR FOR SURGERY. (2) Cholelithiasis Status: Acute Qualifiers: Cholelithiasis location: gallbladder Cholecystitis presence: without cholecystitis Cholangitis presence: C Cholecystitis acuity: C Cholangitis acuity: C Biliary obstruction: without biliary obstruction Qualified Code(s) : K80.20 - Calculus of gallbladder without cholecystitis without obstruction Plan: ABOVE. (3) Gastritis and duodenitis Status: Acute Plan: CONTINUE PEPCID, PROTONIX, ANTI-EMETICS, MONITOR. (4) N&V (nausea and vomiting) Status: Acute Qualifiers: Vomiting type: bilious vomiting Vomiting Intractability: V Qualified Code (s): R11.14 - Bilious vomiting Plan: ABOVE. (5) Hx of supraventricular tachycardia Status: Chronic (6) Hypertension Status: Chronic Qualifiers: Hypertension type: essential hypertension Qualified Code(s): I10 - Essential (primary) hypertension (7) Hypothyroid Status: Chronic Qualifiers: Hypothyroidism type: H
[2017-02-22] MEDS ORDERED: QUELICIN (OR ANECTINE) ONE (11:23)
[2017-02-22] MEDS ORDERED: ROBINUL ONE (11:23)
[2017-02-22] MEDS ORDERED: NEOSTIGMINE INJ ONE (11:23)
[2017-02-22] MEDS ORDERED: PHENERGAN INJ 25 MG IVP PRN (11:32)
[2017-02-22] MEDS ORDERED: BENADRYL INJ 50 MG VIAL IVP PRN (11:32)
[2017-02-22] MEDS ORDERED: REGLAN INJ 10 MG VIAL IVP PRN (11:32)
[2017-02-22] MEDS ORDERED: DILAUDID INJ IVP PRN (11:32)
[2017-02-22] MEDS ORDERED: ZOFRAN INJ 4 MG VIAL IVP PRN (11:32)
[2017-02-22] MEDS: DEMEROL INJ IVP PRN (12:31)
[2017-02-22] MEDS: PROTONIX INJ 40 MG VIAL IVP SCH (12:32)
[2017-02-22] MEDS: PEPCID 20 MG IV PREMIX* 20 MG/50 ML BAG IV SCH (12:32)
[2017-02-22] MEDS ORDERED: PERCOCET TAB 5/325 MG PO PRN (13:20)
[2017-02-22] MEDS ORDERED: DIPRIVAN VIAL ONE (15:39)
[2017-02-22] MEDS ORDERED: NORCURON INJ 10 MG VIAL ONE (15:39)
[2017-02-22] MEDS ORDERED: SUPRANE IN ONE (15:39)
[2017-02-22] MEDS ORDERED: ZOFRAN INJ 4 MG VIAL ONE (15:39)
[2017-02-22] MEDS ORDERED: VERSED ONE (15:39)
[2017-02-22 17:06] VITALS: BP 115/79
== END 2017-02-22 16:40 | disposition home or self-care (01) | DRG 419 ==
LOC: ER 03:44 → MED/SURG 08:08
PROVIDERS: ADMIT Internal Medicine; ATTEND Internal Medicine
PROC: 0FT44ZZ Resection of Gallbladder, Percutaneous Endoscopic Approach (ICD-10-PCS; 2017-02-20)
PROC: 0DJ08ZZ Inspection of Upper Intestinal Tract, Via Natural or Artificial Opening Endoscopic (ICD-10-PCS; principal; 2017-02-20 15:15)
DX: K80.20 Calculus of gallbladder without cholecystitis without obstruction (principal); K29.60 Other gastritis without bleeding; K29.80 Duodenitis without bleeding; R10.13 Epigastric pain; R53.1 Weakness; R10.10 Upper abdominal pain, unspecified; R11.14 Bilious vomiting; E03.8 Other specified hypothyroidism
CPT/HCPCS: 36415; 74176; 76705; 78226; 80053; 81001; 82150; 83690; 85025; 86677; 93005; 93010; 94760; 96365; 96367; 96372; 96374; 96375; 99284; A4216; A4222; C9113; S0020; S0028; A4217; G0378; J0330; J0690; J1885; J2001; J2175; J2250; J2270; J2405; J2550; J2710; J3010; J3490; J7120